=== PATIENT | female | born 1950 | race Caucasian/White ===

== ENCOUNTER 2022-09-08 10:34 | Outpatient (REF) | payer MEDICAID, SELFPAY ==
--- NOTE | ~2022-09-08 | XR_ITS ---
EXAMINATION: XR BILATERAL HIPS WITH AP PELVIS CLINICAL INFORMATION: Pain COMPARISON: None TECHNIQUE: 2 views of each hip were obtained. FINDINGS: Left: Bone alignment is normal. No fracture or dislocation. Normal joint space. Benign appearing soft tissue calcifications lateral to the hip joint. Right: Bone alignment is normal. No fracture or dislocation. Normal joint space. Normal soft tissues. XR/XR hips ANDERSON min 3V IMPRESSION: Unremarkable exam.
--- NOTE | ~2022-09-08 | XR_ITS ---
EXAMINATION: BILATERAL KNEE X-RAY CLINICAL INFORMATION: Pain. COMPARISON: Previous x-ray from 2019. TECHNIQUE: 3 views of each knee. FINDINGS: LEFT: Bone alignment is normal. No fracture or dislocation. There is arthritis at the patellofemoral and femoral tibial joints with joint space narrowing and osteophyte formation. There is a small joint effusion. RIGHT: Bone alignment is normal. No acute fracture or dislocation. There is question of old trauma to the inferior patella. There is arthritis at the patellofemoral and femoral tibial joints with joint space narrowing and osteophyte formation. There is a large joint effusion. XR/XR knee RT 3V IMPRESSION: Bilateral arthritis, right greater than left.
--- NOTE | ~2022-09-08 | XR_ITS ---
EXAMINATION: BILATERAL KNEE X-RAY CLINICAL INFORMATION: Pain. COMPARISON: Previous x-ray from 2019. TECHNIQUE: 3 views of each knee. FINDINGS: LEFT: Bone alignment is normal. No fracture or dislocation. There is arthritis at the patellofemoral and femoral tibial joints with joint space narrowing and osteophyte formation. There is a small joint effusion. RIGHT: Bone alignment is normal. No acute fracture or dislocation. There is question of old trauma to the inferior patella. There is arthritis at the patellofemoral and femoral tibial joints with joint space narrowing and osteophyte formation. There is a large joint effusion. XR/XR knee LT 3V IMPRESSION: Bilateral arthritis, right greater than left.
[2022-09-08 11:24] LABS: Basophils Absolute Auto 0.1 X10*3/uL (0.0-0.2); Basophils Percent Auto 0.7 % (0-2); Eosinophils Absolute Auto 0.1 X10*3/uL (0.0-0.4); Eosinophils Percent Auto 0.7 % (0-4); Hematocrit 41.2 % (37.0-47.0); Hemoglobin 13.3 g/dl (12.0-16.0); Imm Gran Abs Auto 0.02 X10*3/uL (0.00-0.03); Imm Gran Pct Auto 0.3 % (0.0-0.4); Lymphocytes Absolute Auto 1.5 X10*3/uL (1.2-4.9); Lymphocytes Percent Auto 20.1 % (20-40); MANUAL DIFF FLAG NO; Mean Corpuscular HGB Conc 32.3 g/dl (31.0-35.0); Mean Corpuscular Hemoglobin 27.5 pg (27.0-33.0); Mean Corpuscular Volume 85.3 fL (80.0-98.0); Monocytes Absolute Auto 0.5 X10*3/uL (0.1-1.2); Monocytes Percent Auto 6.1 % (2-11); Neutrophils Absolute Auto 5.5 x10*3/uL (2.0-8.3); Neutrophils Percent Auto 72.1 % (45-73); Platelet Count 367 X10*3/uL (160-400); Red Blood Count 4.83 X10*6/uL (4.20-5.50); White Blood Count 7.7 X10*3/uL (4.8-10.8)
[2022-09-08 12:07] LABS: Alanine Aminotransferase 11 U/L (0-31); Albumin Level 4.4 g/dL (3.5-5.0); Alkaline Phosphatase 71 U/L (39-117); Anion Gap 16 (12-20); Aspartate Amino Transferase 16 U/L (5-31); Bilirubin Total 0.5 mg/dL (0.0-1.0); Blood Urea Nitrogen 11 mg/dL (9-16); Carbon Dioxide 26 mmol/L (22-29); Chloride 102 mmol/L (96-108); Estimated Glomerular Filt Rate > 60; Glucose Random 99 mg/dL (60-115); Potassium 5.1 mmol/L (3.3-5.1); Sodium 139 mmol/L (135-145); Total Protein 7.5 g/dL (6.5-8.0)
[2022-09-08 12:22] LABS: Thyroid Stimulating Hormone 2.44 uIU/mL (0.32-4.0)
== END 2022-09-08 10:35 | disposition home or self-care (01) ==
LOC: HO.LAB 10:34
PROVIDERS: PCP Internal Medicine; Visit Provider Internal Medicine
DX: M17.0 Bilateral primary osteoarthritis of knee (principal); M25.551 Pain in right hip; M25.552 Pain in left hip
CPT/HCPCS: 36415; 73522; 73562; 80053; 84443; 85025

== ENCOUNTER 2023-02-06 11:34 | Outpatient (REF) | payer MEDICAID, SELFPAY ==
[2023-02-06 14:13] LABS: MANUAL DIFF FLAG NO
[2023-02-06 14:34] LABS: Basophils Percent Auto 0.2 % (0-2); Eosinophils Absolute Auto 0.1 X10*3/uL (0.0-0.4); Eosinophils Percent Auto 2.2 % (0-4); Hematocrit 37.7 % (37.0-47.0); Hemoglobin 12.2 g/dl (12.0-16.0); Imm Gran Abs Auto 0.01 X10*3/uL (0.00-0.03); Imm Gran Pct Auto 0.2 % (0.0-0.4); Lymphocytes Absolute Auto 1.4 X10*3/uL (1.2-4.9); Lymphocytes Percent Auto 27.5 % (20-40); Mean Corpuscular HGB Conc 32.4 g/dl (31.0-35.0); Mean Corpuscular Hemoglobin 27.4 pg (27.0-33.0); Mean Corpuscular Volume 84.7 fL (80.0-98.0); Mean Platelet Volume 9.8 fL (9.4-12.3); Monocytes Absolute Auto 0.4 X10*3/uL (0.1-1.2); Monocytes Percent Auto 8.4 % (2-11); Neutrophils Percent Auto 61.5 % (45-73); Platelet Count 383 X10*3/uL (160-400); Red Blood Count 4.45 X10*6/uL (4.20-5.50); Red Cell Distribution Width 14.3 % (11.0-16.0); White Blood Count 4.9 X10*3/uL (4.8-10.8)
[2023-02-06 16:07] LABS: Alanine Aminotransferase 12 U/L (0-31); Alkaline Phosphatase 80 U/L (39-117); Anion Gap 16 (12-20); Aspartate Amino Transferase 17 U/L (5-31); Bilirubin Direct 0.2 mg/dL (0.0-0.5); Bilirubin Total 0.7 mg/dL (0.0-1.0); Blood Urea Nitrogen 12 mg/dL (9-16); Calcium 9.8 mg/dL (8.4-10.2); Carbon Dioxide 23 mmol/L (22-29); Chloride 101 mmol/L (96-108); Cholesterol 186 mg/dL; Estimated Glomerular Filt Rate > 60; Glucose Random 80 mg/dL (60-115); HDL Cholesterol 96 mg/dL; LDL Cholesterol Calculated 79 mg/dl; Sodium 136 mmol/L (135-145); Total Protein 7.1 g/dL (6.5-8.0); Triglycerides 57 mg/dL
[2023-02-06 16:36] LABS: Vitamin B12 < 148 pg/mL (200-900)
== END 2023-02-06 11:35 | disposition home or self-care (01) ==
LOC: HO.CHCLDS 11:34
PROVIDERS: Visit Provider Student in an Organized Health Care Education/Training Program
DX: I10 Essential (primary) hypertension (principal); R53.83 Other fatigue
CPT/HCPCS: 36415; 80048; 80061; 80076; 82607; 85025

== ENCOUNTER 2024-07-18 09:06 | Outpatient (REF) | payer MEDICAID, SELFPAY ==
[2024-07-18 10:42] LABS: Alanine Aminotransferase 10 U/L (0-31); Albumin Level 4.1 g/dL (3.5-5.0); Alkaline Phosphatase 85 U/L (39-117); Anion Gap 12 (12-20); Aspartate Amino Transferase 19 U/L (5-31); Bilirubin Direct 0.1 mg/dL (0.0-0.5); Bilirubin Total 0.4 mg/dL (0.0-1.0); Blood Urea Nitrogen 13 mg/dL (9-16); Calcium 8.9 mg/dL (8.4-10.2); Carbon Dioxide 25 mmol/L (22-29); Chloride 104 mmol/L (96-108); Cholesterol 189 mg/dL (<200); Estimated Glomerular Filt Rate > 60; Glucose Random 98 mg/dL (60-115); HDL Cholesterol 85 mg/dL (>40); LDL Cholesterol Calculated 88 mg/dL (<100); Potassium 3.8 mmol/L (3.3-5.1); Sodium 137 mmol/L (135-145); Total Protein 7.3 g/dL (6.5-8.0); Triglycerides 80 mg/dL (<150)
[2024-07-18 11:01] LABS: Vitamin D 25-OH Total 23.4 ng/mL (>30)
[2024-07-18 11:08] LABS: Folate 8.6 ng/mL (> or = 4.0); Vitamin B12 1074 pg/mL (200-900)
[2024-07-21 15:49] LABS: Immunoglobulin A 252 mg/dL (70-320); Transglutaminase IgA <1.0 U/mL
== END 2024-07-18 09:07 | disposition home or self-care (01) ==
LOC: HO.LAB 09:06
PROVIDERS: PCP Internal Medicine; Referring Provider Student in an Organized Health Care Education/Training Program; Visit Provider Internal Medicine
DX: R14.0 Abdominal distension (gaseous) (principal)
CPT/HCPCS: 36415; 80048; 80061; 80076; 82306; 82607; 82746; 82784; 86364

== ENCOUNTER 2024-07-18 09:31 | Outpatient (REF) | payer MEDICAID, SELFPAY | END 2024-07-18 09:32 | disposition home or self-care (01) | LOC: HO.LAB 09:31 | PROVIDERS: Absent Provider Student in an Organized Health Care Education/Training Program; PCP Internal Medicine; Visit Provider Internal Medicine | DX: Z13.89 Encounter for screening for other disorder (principal) ==

== ENCOUNTER 2025-03-13 09:01 | Outpatient (REF) | payer MEDICAID, SELFPAY ==
--- OUTSIDE RECORDS SUMMARY | 2025-03-13 09:03 | XMS_ITS | Encounter Summary ---
Author Organization [employer] Address [address] [place] [address] [address] [place] [address] Care Team Providers Care Public Information Coordinator Name Role Phone Anupama Fernandez MD Primary Care Provider [phone] Encounter Details Date Type Department Care Team (Late st Contact Info) Description 08/21/2023 Abstract [facility] Information Management [address], [place] [id number] Anupama Fernandez MD [address] [place] [address] Social History Tobacco Use Types Packs/Day Years Used Date Smoking Tobacco: Never Passive Smoke Exposure: Never Smokeless Tobacco: Never Alcohol Use Standard Drinks/Week Comments Never 0 (1 standard drink = 0.6 oz pur e alcohol) Comments Unknown Sex and Gender Information Value Date Recorded Sex Assigned at Female 05/28/2022 10:34 AM EDT Legal Sex Female 10:34 AM EDT Gender Identity Female 05/28/2022 10:34 AM EDT Sexual Orientation Choose not to disclose 2021 10:34 AM EDT documented as of this encounter Plan of Treatment Not on file documented as of this encounter Visit Diagnoses Not on filedocumented in this encounter Care Teams Public Information Coordinator Relationship Specialty Start Date End Date Anupama Fernandez MD [address] [place] [address] PCP - General Internal Medicine 06/12/18 documented as of this encounter
[2025-03-13 10:12] LABS: Alanine Aminotransferase 13 U/L (0-31); Albumin Level 4.3 g/dL (3.5-5.0); Alkaline Phosphatase 53 U/L (39-117); Anion Gap 16 (12-20); Aspartate Amino Transferase 24 U/L (5-31); Blood Urea Nitrogen 11 mg/dL (9-16); Calcium 8.9 mg/dL (8.4-10.2); Carbon Dioxide 23 mmol/L (22-29); Chloride 95 mmol/L (96-108); Cholesterol 179 mg/dL (<200); Estimated Glomerular Filt Rate > 60; HDL Cholesterol 83 mg/dL (>40); Potassium 3.8 mmol/L (3.3-5.1); Sodium 130 mmol/L (135-145); Total Protein 7.1 g/dL (6.5-8.0); Triglycerides 64 mg/dL (<150)
[2025-03-13 10:35] LABS: Folate 6.6 ng/mL (> or = 4.0); Vitamin B12 646 pg/mL (200-900)
[2025-03-16 21:04] LABS: Immunoglobulin A 233 mg/dL (70-320)
== END 2025-03-13 09:02 | disposition home or self-care (01) ==
LOC: HO.LAB 09:01
PROVIDERS: PCP Internal Medicine; Visit Provider Student in an Organized Health Care Education/Training Program
DX: Z01.84 Encounter for antibody response examination (principal); I10 Essential (primary) hypertension; E53.8 Deficiency of other specified B group vitamins; E55.9 Vitamin D deficiency, unspecified; R14.0 Abdominal distension (gaseous)
CPT/HCPCS: 36415; 80048; 80061; 80076; 82306; 82607; 82746; 82784; 86364